=== PATIENT | male | born 1940 | race Caucasian/White ===

== ENCOUNTER 2018-02-04 07:19 | Day surgery (SDC) | payer MEDICARE ==
[2018-01-30 11:31] VITALS: BMI 20.7
[2018-02-04] MEDS ORDERED: Sodium Chloride 0.9% 1,000 ML IV SCH (08:45)
[2018-02-04] MEDS ORDERED: Propofol 10 mg/ml Inj (20 ML) ONE (08:57)
[2018-02-04 10:14] VITALS: BP 102/58; PULSE 60; RESP 16; TEMP 97.7; O2SAT 100
== END 2018-02-04 11:15 | disposition home or self-care (01) ==
LOC: ENDO 07:19
PROVIDERS: ATTEND Internal Medicine Gastroenterology
DX: K22.70 Barrett's esophagus without dysplasia (principal); D51.0 Vitamin B12 deficiency anemia due to intrinsic factor deficiency; K25.9 Gastric ulcer, unspecified as acute or chronic, without hemorrhage or perforation; K31.7 Polyp of stomach and duodenum; K26.9 Duodenal ulcer, unspecified as acute or chronic, without hemorrhage or perforation; K29.40 Chronic atrophic gastritis without bleeding
CPT/HCPCS: 43239; 88305; 88312; 88342; J2001; J2704; J7030